=== PATIENT | male | born 1995 | race Caucasian/White ===

== ENCOUNTER 2017-04-07 05:35 | Emergency (ER) | payer SELFPAY ==
[~2017-04-07] VITALS: Ht 172.7 cm; Wt 73.0 kg
[2017-04-07] MEDS ORDERED: SODIUM CHLORIDE 0.9% 1,000 ML IV ONE (05:57)
[2017-04-07] MEDS ORDERED: LORAZEPAM 2MG/ML CPJ IM ONE (06:00)
[2017-04-07] MEDS ORDERED: OLANZAPINE 10 MG/VIAL IM ONE (06:00)
[2017-04-07] MEDS ORDERED: TETANUS, DIPHTHERIA, PERTUSSIS VAC/PF 0.5ML (>7YR OLD) IM ONE (06:15)
[2017-04-07 06:44] LABS: HEMATOCRIT. 39.3 % (42.0-52.0); HEMOGLOBIN. 13.6 g/dL (14.0-18.0); MEAN CORPUSCULAR HEMOGLOBIN 30.9 pg (28.0-32.0); MEAN CORPUSCULAR VOLUME 89.1 fL (80.0-94.0); MEAN PLATELET VOLUME 10.2 fl (7.4-10.4); PLATELET 185 x1000/uL (130-400); RED BLOOD CELL COUNT 4.41 mill/uL (4.7-6.1); RED CELL DISTRIBUTION WIDTH 13.6 % (11.6-14.6)
[2017-04-07 06:55] LABS: INR 1.1; PROTHROMBIN TIME 10.9 sec
[2017-04-07 07:02] LABS: CARBON DIOXIDE 28 mEq/L (21-32); CHLORIDE 105 mEq/L (98-107); ETHANOL BLOOD < 10 mg/dL; TROPONIN I < 0.02 ng/mL (0.00-0.04)
[2017-04-07 07:19] LABS: CLARITY URINE CLEAR (CLEAR); COLOR URINE YELLOW (YELLOW); GLUCOSE URINE NEGATIVE (NEGATIVE); KETONES URINE TRACE (NEGATIVE); LEUKOCYTE ESTERASE URINE NEGATIVE (NEGATIVE); NITRITE URINE NEGATIVE (NEGATIVE); OCCULT BLOOD URINE NEGATIVE (NEGATIVE); PH URINE 6.5 (4.5-8.0); PROTEIN URINE TRACE (NEGATIVE); SPECIFIC GRAVITY URINE 1.031 (1.005-1.030); UROBILINOGEN URINE 0.2 E.U./dL (0.2-1.0)
[2017-04-07 07:43] LABS: *AMPHETAMINES SCREEN URINE PRESUMTIVE POSITIVE (NEGATIVE); *BARBITURATES SCREEN URINE NEGATIVE (NEGATIVE); *BENZODIAZEPINES SCREEN URINE PRESUMTIVE POSITIVE (NEGATIVE); *COCAINE SCREEN URINE NEGATIVE (NEGATIVE); CANNABINOID URINE SCREEN PRESUMTIVE POSITIVE (NEGATIVE); METHADONE URINE SCREEN NEGATIVE (NEGATIVE); OPIATES URINE SCREEN NEGATIVE (NEGATIVE); PHENCYCLIDINE URINE SCREEN NEGATIVE (NEGATIVE)
[2017-04-07 08:09] LABS: PLATELET ESTIMATE NORMAL
[2017-04-07 09:45] VITALS: BP 116/74
== END 2017-04-07 09:46 | disposition home or self-care (01) ==
LOC: ER 05:43
DX: R00.2 Palpitations (principal); F15.10 Other stimulant abuse, uncomplicated; G92 Toxic encephalopathy; S80.219A Abrasion, unspecified knee, initial encounter; S00.81XA Abrasion of other part of head, initial encounter
CPT/HCPCS: 36415; 51702; 80053; 80305; 80307; 80329; 81001; 83880; 84443; 84484; 85025; 85610; 93005; 96360; 96372; 99285; G0482; J2060; J3490; J7030; Z7610; A4315